=== PATIENT | female | born 1950 | race Caucasian/White ===

== ENCOUNTER 2018-02-16 10:29 | Inpatient (IN) | payer OTHER ==
--- NOTE | 2018-02-16 12:41 | HP ---
CIWA Score - CIWA Score Nausea/Vomitin-No Nausea/No Vomiting Muscle Tremors: None Anxiety: 1-Mildly Anxious Agitation: 1-Slight > Activity Paroxysmal Sweats: No Perspiration Orientation: 0-Oriented Tacttile Disturbances: 0-None Auditory Disturbances: 0-None Visual Disturbances: 0-None Headache: 0-None Present CIWA-Ar Total Score: 2 Admission ROS BHS - HPI Allergies/Adverse Reactions: Allergies Allergy/AdvReac Type Severity Reaction Status Date / Time No Known Allergies Allergy Verified 02/16/18 11:23 History of Present Illness: patient here requesting detox for etoh use , reports etoh use x 40 years , currently at leat 2 pints/day , latest use yesterday around 10 pm , usually starts drinking around 9 am , reports anxiety if not drinking , denies tremors , denies w/d seizure , + CVA 2 years ago w/ reported memory loss , no deficit in ADLs . + blackouts in the past, most recently 1 mo ago , prior 10 yrs ago , denies falls , + fainting . Prior tx episodes : 3 , most recently 5 yrs ago [facility] , most recent rehab 5 yrs ago @ [facility] , sober x 1 yr , + relapse . cocaine : when someone gives her cocaine , latest yesterday , has been using cocaine x 30 yrs , denies IVDU use cannabis use : occasional use since age 21 tobacco : 1 ppd x 1 yr, tobacco x 35 yrs , requesting nrt w/ patch and gum utox + thc, + danish, alex 0.000 pmhx : htn , cva , hld , copd pshx : [facility] [facility] 45 yrs ago psych : depression , denies SI / [place] denies driving lives alone retired Exam Limitations: No Limitations - Ebola screening Have you traveled outside of the country in the last 21 days: No Have you had contact with anyone from an Ebola affected area: No Have you been sick,other than usual withdrawal symptoms: No Do you have a fever: No - Review of Systems Constitutional: Malaise EENT: reports: Other (reading glasses, myopia) Respiratory: reports: See HPI Cardiac: reports: Chest Pain, Syncope, Other (reports intermittent episodes of CP has own PCP dr Bran GALVAN in [place]) GI: reports: No Symptoms Reported Musculoskeletal: reports: Joint Pain (left shoulder pain reports had fall while intoxicated , per pt had frx , arm in sling from [facility] , has intermittent pain in the left shoulder , rates pain 6/10 , no meds excp Lidocaine ointment, [place] balm OTC , has not seen ortho) Integumentary: reports: Other (intermittent rash on arms & back , pruritic) Neuro: reports: Pre-Existing Deficit Psychiatric: reports: Orientated x3, Depressed Patient History - Patient Medical History Hx Asthma: No Hx Chronic Obstructive Pulmonary Disease (COPD): Yes Hx Cardiac Disorders: No Hx Hypertension: Yes Hx Seizures: No Hx Diabetes: No Hx Gastrointestinal Disorders: No Hx Genitourinary Disorders: No Hx Sexually Transmitted Disorders: No Hx Renal Disease (ESRD): No Hx Depression: Yes Hx Suicide Attempt: No Hx Schizophrenia: No - Patient Surgical History Past Surgical History: No Hx Neurologic Surgery: No Hx Cataract Extraction: No Hx Cardiac Surgery: No Hx Lung Surgery: No Hx Breast Surgery: No Hx Breast Biopsy: No Hx Abdominal Surgery: No Hx Appendectomy: No Hx Cholecystectomy: No Hx Genitourinary Surgery: No Hx Section: No Hx Orthopedic Surgery: No Anesthesia Reaction: No - PPD History Previous Implant?: Yes Documented Results: Positive w/o proof Implanted On Prior [facility] Admission?: No - Reproductive History Patient : No - Smoking Cessation Smoking history: Current every day smoker Have you smoked in the past 12 months: Yes Aproximately how many cigarettes per day: 20 Hx Chewing Tobacco Use: No Initiated information on smoking cessation: No - Substances Abused Cocaine Route: Inhalation Frequency: 1-2 times per week Amount used: $20-40 Age of first use: 35 Date of Last Use: 02/15/18 Alcohol-vodka Frequency: Daily Amount used: 2 pts. Age of first use: 35 Date of Last Use: 02/15/18 Marijuana Route: Smoking Frequency: 1-3 times last 30 days Amount used: 1 joint Age of first use: 26 Date of Last Use: 02/15/18 Family Disease History - Family Disease History Family Disease History: Diabetes: Mother (htn), Heart Disease: Mother, Other: Mother, Brother (aids, oral cancer ) Admission Physical Exam BHS - Vital Signs Vital Signs: Vital Signs - 24 hr 02/16/18 10:49 Temperature 97.2 F L Pulse Rate 70 Respiratory 18 Rate Blood Pressure 159/106 - Physical General Appearance: Yes: Within Normal Limits, No Apparent Distress, Nourished, Appropriately Dressed HEENTM: Yes: Within Normal Limits, EOMI, Hearing grossly Normal, Normal ENT Inspection, Normocephalic, Normal Voice, LINDSEY, Pharynx Normal, Tm's normal Respiratory: Yes: Chest Non-Tender, Lungs Clear, Normal Breath Sounds, Decreased Breath Sounds, No Respiratory Distress, No Accessory Muscle Use, Wheezing Neck: Yes: Within Normal Limits, No masses,lesions,Nodules, Trachea in good position Breast: Yes: Within Normal Limits, Axillae without masses, Breasts Symetrical, No Discharge, No masses Cardiology: Yes: Within Normal Limits, Regular Rhythm, Regular Rate Abdominal: Yes: Within Normal Limits, Normal Bowel Sounds, Non Tender, Flat, Soft Genitourinary: Yes: Within Normal Limits Back: Yes: Within Normal Limits, Normal Inspection Musculoskeletal: Yes: Within Normal Limits, full range of Motion, Gait Steady, Pelvis Stable Extremities: Yes: Within Normal Limits, Normal Capillary Refill, Normal Inspection, Normal Range of Motion, Non-Tender Neurological: Yes: Within Normal Limits, fish inspector II-XII NML intact, Fully Oriented, Alert, Motor Strength 5/5, Normal Mood/Affect, Normal Response Integumentary: Yes: Within Normal Limits, Normal Color, Dry, Warm Lymphatic: Yes: Within Normal Limits BHS Breath Alcohol Content Breath Alcohol Content: 0 Urine Pregancy Test - Result Urine Test Results: Negative- NO Line Present Urine Drug Screen - Results Drug Screen Negative: No Urine Drug Screen Results: THC-Marijuana, DANISH-Cocaine
[2018-02-16] MEDS ORDERED: ACETAMINOPHEN 325 MG TABLET (FP) PO PRN (12:56)
[2018-02-16] MEDS ORDERED: NICOTINE POLACRILEX 2 MG GUM BUC PRN (12:56)
[2018-02-16] MEDS ORDERED: MAGNESIUM CITRATE 300 ML BOTTLE PO PRN (12:56)
[2018-02-16] MEDS ORDERED: MENTHOL/PHENOL 1 EACH UD MM PRN (12:56)
[2018-02-16] MEDS ORDERED: IBUPROFEN 400 MG TABLET (FP) PO PRN (12:56)
[2018-02-16] MEDS ORDERED: MAG HYDROX/AL HYDROX/SIMETH 30 ML UNIT-DOSE CUP PO PRN (12:56)
[2018-02-16] MEDS ORDERED: MAGNESIUM HYDROX 2400MG/30ML ORAL SUSPENSION 30 ML CUP PO PRN (12:56)
[2018-02-16] MEDS ORDERED: AMMONIUM LACTATE 12% LOTION 225 GM BOTTLE TP PRN (13:00)
[2018-02-16] MEDS ORDERED: chlordiazePOXIDE HCL 10 MG CAPSULE PO ONE (14:11)
[2018-02-16] MEDS ORDERED: ALBUTEROL SO4 0.083% IH SOL 2.5 MG/3 ML VIAL.NEB. NEB PRN (14:13)
[2018-02-16] MEDS: NICOTINE 7 MG/24 HOURS TOPICAL PATCH TD SCH (14:44)
[2018-02-16] MEDS ORDERED: hydrOXYzine PAMOATE 25 MG CAPSULE (FP) PO PRN (15:06)
[2018-02-16 17:31] LABS: URINE APPEARANCE CLOUDY; URINE BILIRUBIN NEGATIVE (<2.0 mg/dL); URINE COLOR YELLOW; URINE GLUCOSE (UA) NEGATIVE (NEGATIVE); URINE KETONE NEGATIVE (NEGATIVE); URINE NITRITE NEGATIVE (NEGATIVE); URINE PROTEIN NEGATIVE (NEGATIVE); URINE UROBILINOGEN NEGATIVE mg/dL (0.2-1.0)
[2018-02-16 17:47] LABS: URINE LEUK ESTERASE 1+ (NEGATIVE)
[2018-02-16] MEDS: chlordiazePOXIDE HCL 25 MG CAPSULE PO SCH ×2 (17:50→22:17)
[2018-02-16 17:55] LABS: EPI CELLS RARE /HPF (FEW); URINE MUCUS MODERATE
[2018-02-16] MEDS ORDERED: MELATONIN 5 MG TABLETS PO PRN (22:00)
[2018-02-16] MEDS: ATORVASTATIN CA 10 MG TABLET (FP) PO SCH (22:17)
[2018-02-16] MEDS: THIAMINE HCL 100 MG TABLET (FP) PO SCH (22:17)
[2018-02-17] MEDS: chlordiazePOXIDE HCL 25 MG CAPSULE PO SCH ×4 (05:29→22:45)
--- NOTE | 2018-02-17 08:02 | EKG ---
Test Reason : Blood Pressure : / mmHG Vent. Rate : 073 BPM Atrial Rate : 073 BPM P-R Int : 204 ms QRS Dur : 082 ms QT Int : 424 ms P-R-T Axes : 069 010 027 degrees QTc Int : 467 ms NORMAL SINUS RHYTHM NORMAL ECG WHEN COMPARED WITH ECG OF 07-JUL-2016 14:55, NO SIGNIFICANT CHANGE WAS FOUND Confirmed by MARIANNE KEARNEY MD ([id number]) on 02/17/2018 8:01:53 AM Referred By: Confirmed By:MARIANNE KEARNEY MD
--- NOTE | 2018-02-17 09:49 | CONSULT ---
[facility] Psychiatric Consult - Data Date of interview: 02/17/18 Admission source: [facility] Identifying data: Patient is 67 year old single female, mother of one, retired, domiciled, and is supported by SSI and pension benefits. This is patient's first admission to detox at [facility]. Pt admitted to for alcohol, cocaine, and marijuana dependence. Substance Abuse History: Smoking Cessation. Smoking history: Current every day smoker. Have you smoked in the past 12 months: Yes. Aproximately how many cigarettes per day: 20. Hx Chewing Tobacco Use: No. Initiated information on smoking cessation: No. - Substances Abused. Cocaine. Route: Inhalation. Frequency: 1-2 times per week. Amount used: $20-40. Age of first use: 35. Date of Last Use: 02/15/18. Alcohol-vodka. Frequency: Daily. Amount used: 2 pts. Age of first use: 35. Date of Last Use: 02/15/18. Marijuana. Route : Smoking. Frequency: 1-3 times last 30 days. Amount used: 1 joint. Age of first use: 26. Date of Last Use: 02/15/18 Medical History: hypertension Psychiatric History: Patient reports one psychiatric hospitalization for depression 17 years ago at [facility]. Most recent outpatient psychiatric care was provided five years ago in [place]. She was started on Cymbalta and continues to accept medication today. She is currently accepting Cymbalta 60mg DR and reports receiving her refills from her PCP. Patient denies h/o suicide attempt Physical/Sexual Abuse/Trauma History: denies. Mental Status Exam - Mental Status Exam Alert and Oriented to: Time, Place, Person Cognitive Function: Good Patient Appearance: Well Groomed Mood: Euthymic Affect: Mood Congruent Patient Behavior: Appropriate, Cooperative Speech Pattern: Clear, Appropriate Voice Loudness: Normal Thought Process: Intact, Goal Oriented Thought Disorder: Not Present Hallucinations: Denies Suicidal Ideation: Denies Homicidal Ideation: Denies Insight/Judgement: Poor Sleep: Fair Appetite: Fair Muscle strength/Tone: Normal Gait/Station: Other (Did not observe patient's gait.) Psychiatric Findings - Problem List ([place] 1, 2,3) (1) Alcohol dependence Current Visit: Yes Status: Acute (2) Cocaine dependence Current Visit: Yes Status: Acute (3) Substance induced mood disorder Current Visit: Yes Status: Acute - Initial Treatment Plan Initial Treatment Plan: Psychoeducation provided. Detoxification in progress. Will order Cymbalta 60mg Benefits and side effects discussed. Verbal consent given.
[2018-02-17] MEDS ORDERED: PATIENT'S OWN MEDICATION (NON-FORMULARY) (Telmisartan/Hydrochlorothiazid [Telmisartan-Hctz PO SCH (10:00)
[2018-02-17 10:22] LABS: HEMATOCRIT 36.1 % (32.4-45.2); HEMOGLOBIN 12.1 GM/dL (10.7-15.3); MCH 34.5 pg (25.7-33.7); MCHC 33.5 g/dl (32.0-36.0); MEAN CELL VOLUME 103.1 fl (80-96); MEAN PLT VOLUME 8.5 fl (7.5-11.1); PLATELET COUNT 260 K/MM3 (134-434); WHITE BLOOD COUNT 7.8 K/mm3 (4.0-10.0)
[2018-02-17] MEDS: VALSARTAN 160 MG TABLET (UD) PO SCH (10:22)
[2018-02-17] MEDS: DULoxetine HCL 60 MG CAPSULE.DR PO SCH (10:22)
[2018-02-17] MEDS: NICOTINE 7 MG/24 HOURS TOPICAL PATCH TD SCH (10:22)
[2018-02-17] MEDS: PRENATAL VITAMINS W/ FOLIC ACID TABLET (FP) PO SCH (10:22)
[2018-02-17] MEDS: HYDROCHLOROTHIAZIDE 25 MG TABLET (FP) PO SCH (10:22)
[2018-02-17 10:25] LABS: ALBUMIN 3.8 g/dl (3.4-5.0); ALK PHOS 88 U/L (45-117); ANION GAP 9 MMOL/L (8-16); BILIRUBIN,TOTAL 0.4 mg/dL (0.2-1); BLOOD UREA NITROGEN 16 mg/dL (7-18); CALCIUM 9.2 mg/dL (8.5-10.1); CHLORIDE 107 mmol/L (98-107); CO2 27 mmol/L (21-32); CREATININE 0.8 mg/dL (0.55-1.3); GLUCOSE,RANDOM 113 mg/dL (74-106); POTASSIUM 3.9 mmol/L (3.5-5.1); SGOT/AST 26 U/L (15-37); SGPT/ALT 25 U/L (13-61); SODIUM 142 mmol/L (136-145); TOT PROT 7.2 g/dl (6.4-8.2)
--- NOTE | 2018-02-17 10:55 | PN ---
S CIWA - CIWA Score Nausea/Vomitin-No Nausea/No Vomiting Muscle Tremors: 2 Anxiety: 0-No Anxiety, at Ease Agitation: 0-Normal Activity Paroxysmal Sweats: 1-Minimal Palms Moist Orientation: 0-Oriented Tacttile Disturbances: 0-None Auditory Disturbances: 0-None Visual Disturbances: 0-None Headache: 0-None Present CIWA-Ar Total Score: 3 BHS Progress Note (SOAP) Subjective: PATIENT PRESENT WITH MILD ANXIETY AND TREMORS. Objective: 02/17/18 10:53 Laboratory Tests 02/16/18 02/16/18 02/17/18 12:30 15:00 06:00 WBC 7.8 RBC 3.50 L Hgb 12.1 Hct 36.1 MCV 103.1 H MCH 34.5 H MCHC 33.5 RDW 14.0 Plt Count 260 MPV 8.5 D Sodium Potassium Chloride Carbon Dioxide Anion Gap BUN Creatinine Creat Clearance w eGFR Random Glucose Calcium Total Bilirubin AST ALT Alkaline Phosphatase Total Protein Albumin Urine Color Yellow Urine Appearance Cloudy Urine pH 5.0 Ur Specific [place] 1.019 Urine Protein Negative Urine Glucose (UA) Negative Urine Ketones Negative Urine Blood Negative Urine Nitrite Negative Urine Bilirubin Negative Urine Urobilinogen Negative Ur Leukocyte Esterase 1+ H Urine WBC (Auto) 6 Urine RBC (Auto) <1 Ur Epithelial Cells Rare Urine Mucus Moderate HIV 1&2 Antibody Screen Negative HIV P24 Antigen Negative 02/17/18 06:00 WBC RBC Hgb Hct MCV MCH MCHC RDW Plt Count MPV Sodium 142 Potassium 3.9 Chloride 107 Carbon Dioxide 27 Anion Gap 9 BUN 16 Creatinine 0.8 Creat Clearance w eGFR > 60 Random Glucose 113 H Calcium 9.2 Total Bilirubin 0.4 AST 26 ALT 25 Alkaline Phosphatase 88 Total Protein 7.2 Albumin 3.8 Urine Color Urine Appearance Urine pH Ur Specific [place] Urine Protein Urine Glucose (UA) Urine Ketones Urine Blood Urine Nitrite Urine Bilirubin Urine Urobilinogen Ur Leukocyte Esterase Urine WBC (Auto) Urine RBC (Auto) Ur Epithelial Cells Urine Mucus HIV 1&2 Antibody Screen HIV P24 Antigen Vital Signs Temperature 99.3 F 02/17/18 09:14 Pulse Rate 67 02/17/18 09:14 Respiratory Rate 16 02/17/18 09:14 Blood Pressure 147/90 02/17/18 09:14 O2 Sat by Pulse Oximetry (%) SKIN WARM AND DRY CAR S1S2 RESP CTABL EXT NO EDEMA, +TREMORS-MILD Assessment: 02/17/18 10:54 ETOH WITHDRAWAL SYNDROME Plan: CONTINUE DETOX PER PROTOCOL ENCOURAGE ORAL FLUIDS
[2018-02-17] MEDS ORDERED: FLU VACCINE QUAD 60 MCG/0.5 ML (MDV 18-19) IM ONE (12:00)
[2018-02-17] MEDS: ATORVASTATIN CA 10 MG TABLET (FP) PO SCH (22:45)
[2018-02-17] MEDS: THIAMINE HCL 100 MG TABLET (FP) PO SCH (22:45)
[2018-02-18] MEDS: chlordiazePOXIDE HCL 25 MG CAPSULE PO SCH ×2 (05:49→10:23)
[2018-02-18] MEDS: VALSARTAN 160 MG TABLET (UD) PO SCH (10:24)
[2018-02-18] MEDS: NICOTINE 7 MG/24 HOURS TOPICAL PATCH TD SCH (10:24)
[2018-02-18] MEDS: DULoxetine HCL 60 MG CAPSULE.DR PO SCH (10:24)
[2018-02-18] MEDS: PRENATAL VITAMINS W/ FOLIC ACID TABLET (FP) PO SCH (10:24)
[2018-02-18] MEDS: HYDROCHLOROTHIAZIDE 25 MG TABLET (FP) PO SCH (10:24)
--- NOTE | 2018-02-18 10:25 | PN ---
S CIWA - CIWA Score Nausea/Vomitin Muscle Tremors: 3 Anxiety: 2 Agitation: 2 Paroxysmal Sweats: 2 Orientation: 0-Oriented Tacttile Disturbances: 2-Mild Itch/Numbness/Burn Auditory Disturbances: 0-None Visual Disturbances: 0-None Headache: 2-Mild CIWA-Ar Total Score: 15 S Progress Note (SOAP) Subjective: Irritability, tremors, interrupted sleep Objective: 02/18/18 10:25 Vital Signs 02/18/18 02/18/18 02/18/18 03:30 06:00 07:15 Temperature 97.3 F L Pulse Rate 73 72 Respiratory 18 16 18 Rate Blood Pressure 152/94 146/92 02/18/18 09:55 Temperature 98.1 F Pulse Rate 75 Respiratory 18 Rate Blood Pressure 153/77 Laboratory Last Values WBC 7.8 K/mm3 (4.0-10.0) 02/17/18 06:00 RBC 3.50 M/mm3 (3.60-5.2) L 02/17/18 06:00 Hgb 12.1 GM/dL (10.7-15.3) 02/17/18 06:00 Hct 36.1 % (32.4-45.2) 02/17/18 06:00 MCV 103.1 fl (80-96) H 02/17/18 06:00 MCH 34.5 pg (25.7-33.7) H 02/17/18 06:00 MCHC 33.5 g/dl (32.0-36.0) 02/17/18 06:00 RDW 14.0 % (11.6-15.6) 02/17/18 06:00 Plt Count 260 K/MM3 (134-434) 02/17/18 06:00 MPV 8.5 fl (7.5-11.1) D 02/17/18 06:00 Sodium 142 mmol/L (136-145) 02/17/18 06:00 Potassium 3.9 mmol/L (3.5-5.1) 02/17/18 06:00 Chloride 107 mmol/L (98-107) 02/17/18 06:00 Carbon Dioxide 27 mmol/L (21-32) 02/17/18 06:00 Anion Gap 9 MMOL/L (8-16) 02/17/18 06:00 BUN 16 mg/dL (7-18) 02/17/18 06:00 Creatinine 0.8 mg/dL (0.55-1.3) 02/17/18 06:00 Creat Clearance w eGFR > 60 (>60) 02/17/18 06:00 Random Glucose 113 mg/dL (74-106) H 02/17/18 06:00 Calcium 9.2 mg/dL (8.5-10.1) 02/17/18 06:00 Total Bilirubin 0.4 mg/dL (0.2-1) 02/17/18 06:00 AST 26 U/L (15-37) 02/17/18 06:00 ALT 25 U/L (13-61) 02/17/18 06:00 Alkaline Phosphatase 88 U/L (45-117) 02/17/18 06:00 Total Protein 7.2 g/dl (6.4-8.2) 02/17/18 06:00 Albumin 3.8 g/dl (3.4-5.0) 02/17/18 06:00 Urine Color Yellow 02/16/18 15:00 Urine Appearance Cloudy 02/16/18 15:00 Urine pH 5.0 (5.0-8.0) 02/16/18 15:00 Ur Specific [place] 1.019 (1.001-1.035) 02/16/18 15:00 Urine Protein Negative (NEGATIVE) 02/16/18 15:00 Urine Glucose (UA) Negative (NEGATIVE) 02/16/18 15:00 Urine Ketones Negative (NEGATIVE) 02/16/18 15:00 Urine Blood Negative (NEGATIVE) 02/16/18 15:00 Urine Nitrite Negative (NEGATIVE) 02/16/18 15:00 Urine Bilirubin Negative (<2.0 mg/dL) 02/16/18 15:00 Urine Urobilinogen Negative mg/dL (0.2-1.0) 02/16/18 15:00 Ur Leukocyte Esterase 1+ (NEGATIVE) H 02/16/18 15:00 Urine WBC (Auto) 6 /hpf (3-5) 02/16/18 15:00 Urine RBC (Auto) <1 /hpf (0-3) 02/16/18 15:00 Ur Epithelial Cells Rare /HPF (FEW) 02/16/18 15:00 Urine Mucus Moderate 02/16/18 15:00 RPR Titer Nonreactive (NONREACTIVE) 02/17/18 06:00 HIV 1&2 Antibody Screen Negative 02/16/18 12:30 HIV P24 Antigen Negative 02/16/18 12:30 Labs noted Assessment: 02/18/18 10:25 Withdrawal sx Plan: Continue detox
[2018-02-18] MEDS: chlordiazePOXIDE 5 MG CAPSULE PO SCH ×2 (17:41→22:24)
[2018-02-18] MEDS: THIAMINE HCL 100 MG TABLET (FP) PO SCH (22:24)
[2018-02-18] MEDS: ATORVASTATIN CA 10 MG TABLET (FP) PO SCH (22:24)
[2018-02-19] MEDS: chlordiazePOXIDE 5 MG CAPSULE PO SCH (05:14)
--- NOTE | 2018-02-19 09:10 | DS ---
[facility] Detox Discharge Summary Admission Date: 02/16/18 Discharge Date: 02/19/18 - History Present History: Alcohol Dependence Additional Comments: 67 years old female admitted on 02/16/18 for alcohol withdrawal sx completed alcohol detox regimen tolerated well denies alcohol withdrawal sx alert oriented x 3 no acute distress aftercare [facility] - Physical Exam Results Vital Signs: Vital Signs Temperature 96.3 F L 02/19/18 06:00 Pulse Rate 73 02/19/18 06:00 Respiratory Rate 18 02/19/18 06:00 Blood Pressure 150/88 02/19/18 06:00 O2 Sat by Pulse Oximetry (%) Pertinent Admission Physical Exam Findings: opiate withdrawal sx Vital Signs Temperature 98.4 F 02/19/18 09:34 Pulse Rate 72 02/19/18 09:34 Respiratory Rate 18 02/19/18 09:34 Blood Pressure 147/87 02/19/18 09:34 O2 Sat by Pulse Oximetry (%) Laboratory Last Values WBC 7.8 K/mm3 (4.0-10.0) 02/17/18 06:00 RBC 3.50 M/mm3 (3.60-5.2) L 02/17/18 06:00 Hgb 12.1 GM/dL (10.7-15.3) 02/17/18 06:00 Hct 36.1 % (32.4-45.2) 02/17/18 06:00 MCV 103.1 fl (80-96) H 02/17/18 06:00 MCH 34.5 pg (25.7-33.7) H 02/17/18 06:00 MCHC 33.5 g/dl (32.0-36.0) 02/17/18 06:00 RDW 14.0 % (11.6-15.6) 02/17/18 06:00 Plt Count 260 K/MM3 (134-434) 02/17/18 06:00 MPV 8.5 fl (7.5-11.1) D 02/17/18 06:00 Sodium 142 mmol/L (136-145) 02/17/18 06:00 Potassium 3.9 mmol/L (3.5-5.1) 02/17/18 06:00 Chloride 107 mmol/L (98-107) 02/17/18 06:00 Carbon Dioxide 27 mmol/L (21-32) 02/17/18 06:00 Anion Gap 9 MMOL/L (8-16) 02/17/18 06:00 BUN 16 mg/dL (7-18) 02/17/18 06:00 Creatinine 0.8 mg/dL (0.55-1.3) 02/17/18 06:00 Creat Clearance w eGFR > 60 (>60) 02/17/18 06:00 Random Glucose 113 mg/dL (74-106) H 02/17/18 06:00 Calcium 9.2 mg/dL (8.5-10.1) 02/17/18 06:00 Total Bilirubin 0.4 mg/dL (0.2-1) 02/17/18 06:00 AST 26 U/L (15-37) 02/17/18 06:00 ALT 25 U/L (13-61) 02/17/18 06:00 Alkaline Phosphatase 88 U/L (45-117) 02/17/18 06:00 Total Protein 7.2 g/dl (6.4-8.2) 02/17/18 06:00 Albumin 3.8 g/dl (3.4-5.0) 02/17/18 06:00 Urine Color Yellow 02/16/18 15:00 Urine Appearance Cloudy 02/16/18 15:00 Urine pH 5.0 (5.0-8.0) 02/16/18 15:00 Ur Specific [place] 1.019 (1.001-1.035) 02/16/18 15:00 Urine Protein Negative (NEGATIVE) 02/16/18 15:00 Urine Glucose (UA) Negative (NEGATIVE) 02/16/18 15:00 Urine Ketones Negative (NEGATIVE) 02/16/18 15:00 Urine Blood Negative (NEGATIVE) 02/16/18 15:00 Urine Nitrite Negative (NEGATIVE) 02/16/18 15:00 Urine Bilirubin Negative (<2.0 mg/dL) 02/16/18 15:00 Urine Urobilinogen Negative mg/dL (0.2-1.0) 02/16/18 15:00 Ur Leukocyte Esterase 1+ (NEGATIVE) H 02/16/18 15:00 Urine WBC (Auto) 6 /hpf (3-5) 02/16/18 15:00 Urine RBC (Auto) <1 /hpf (0-3) 02/16/18 15:00 Ur Epithelial Cells Rare /HPF (FEW) 02/16/18 15:00 Urine Mucus Moderate 02/16/18 15:00 RPR Titer Nonreactive (NONREACTIVE) 02/17/18 06:00 HIV 1&2 Antibody Screen Negative 02/16/18 12:30 HIV P24 Antigen Negative 02/16/18 12:30 lab noted - Treatment Hospital Course: Detox Protocol Followed, Detoxed Safely, Responded well, Discharged Condition Good, Rehab Referral Accepted Patient has Accepted a Rehab Referral to: [facility] - Medication Discharge Medications: Ambulatory Orders Ammonium Lactate Lotion [Lac-Hydrin 12] 1 applic TP DAILY PRN 02/16/18 Duloxetine HCl [Cymbalta -] 60 mg PO DAILY 02/16/18 Simvastatin [Zocor -] 10 mg PO HS 02/16/18 Telmisartan/Hydrochlorothiazid [Telmisartan-Hctz 80-25 mg Tab] 1 tab PO DAILY # 30 tablet 02/19/18 - Diagnosis (1) Alcohol dependence with withdrawal Status: Acute Qualifiers: Complication of substance-induced condition: uncomplicated Qualified Code(s ): F10.230 - Alcohol dependence with withdrawal, uncomplicated (2) Nicotine dependence Status: Acute Qualifiers: Nicotine product type: cigarettes Substance use status: in withdrawal Qualified Code(s): F17.213 - Nicotine dependence, cigarettes, with withdrawal - AMA Did Patient Leave Against Medical Advice: No
[2018-02-19 09:35] VITALS: BP 147/87; PULSE 72; TEMP 98.4
[2018-02-19] MEDS: PRENATAL VITAMINS W/ FOLIC ACID TABLET (FP) PO SCH (09:35)
[2018-02-19] MEDS: HYDROCHLOROTHIAZIDE 25 MG TABLET (FP) PO SCH (09:35)
[2018-02-19] MEDS: VALSARTAN 160 MG TABLET (UD) PO SCH (09:35)
[2018-02-19] MEDS: NICOTINE 7 MG/24 HOURS TOPICAL PATCH TD SCH (09:35)
[2018-02-19] MEDS: DULoxetine HCL 60 MG CAPSULE.DR PO SCH (09:35)
[2018-02-19] MEDS ORDERED: chlordiazePOXIDE HCL 10 MG CAPSULE PO SCH (17:00)
== END 2018-02-19 10:03 | disposition home or self-care (01) | DRG 897 ==
LOC: YASAS 10:29 → Y6N 13:31
PROC: HZ2ZZZZ Detoxification Services for Substance Abuse Treatment (ICD-10-PCS; principal; 2018-02-16)
DX: F10.230 Alcohol dependence with withdrawal, uncomplicated (principal); F14.20 Cocaine dependence, uncomplicated; F12.90 Cannabis use, unspecified, uncomplicated; F17.213 Nicotine dependence, cigarettes, with withdrawal; F19.24 Other psychoactive substance dependence with psychoactive substance-induced mood disorder; I10 Essential (primary) hypertension; E78.5 Hyperlipidemia, unspecified; J44.9 Chronic obstructive pulmonary disease, unspecified; Z86.73 Personal history of transient ischemic attack (TIA), and cerebral infarction without residual deficits
CPT/HCPCS: 36415; 71046-TC-FY; 80053; 81003; 81015; 85027; 86593; 87389; 90688; 93005; 93010; G0008